=== PATIENT | female | born 1990 | race Caucasian/White ===

== ENCOUNTER 2016-06-16 12:56 | Emergency (ER) | payer SELFPAY ==
--- NOTE | 2016-06-16 14:26 | ER Document Report ---
HPI - HPI Patient complains to provider of: left shoulder pain for 2 years Onset: Other - 2 years Onset/Duration: Gradual Quality of pain: Burning, Throbbing Pain Level: 5 Context: 25-year-old female complaining of chronic intermittent posterior left shoulder pain that radiates up into her neck and periscapular. 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 She started working at [employer] here which has aggravated it. It hurt so bad last night that it caused her left arm to go numb. No cervical spine injury. Pain or shortness of breath. She feels like she constantly has to hold her posterior shoulder muscle while she is working. Associated Symptoms: None Exacerbated by: Movement Relieved by: Denies Similar symptoms previously: Yes Recently seen / treated by doctor: No - ROS ROS below otherwise negative: Yes Systems Reviewed and Negative: Yes All other systems reviewed and negative - DERM Skin Color: Normal Past Medical History - General Information source: Patient - Social History Smoking Status: Current Every Day Smoker Frequency of alcohol use: None Drug Abuse: None Lives with: Spouse/Significant other Family History: Reviewed & Not Pertinent Patient has suicidal ideation: No Patient has homicidal ideation: No - Medical History Medical History: Negative Renal/ Medical History: Denies: Hx Peritoneal Dialysis Surgical Hx: Negative Vertical Provider Document - CONSTITUTIONAL Agree With Documented VS: Yes Exam Limitations: No Limitations - INFECTION CONTROL TRAVEL OUTSIDE OF THE [place] IN LAST 30 DAYS: No - HEENT HEENT: Atraumatic, Normocephalic Notes: Nontender C-spine - NECK Neck: Supple - RESPIRATORY Respiratory: Breath Sounds Normal, No Respiratory Distress O2 Sat by Pulse Oximetry: 98 - CARDIOVASCULAR Cardiovascular: Regular Rate, Regular Rhythm - BACK Back: Normal Inspection - Tender left trapezius, left periscapular muscles - MUSCULOSKELETAL/EXTREMETIES Musculoskeletal/Extremeties: MAEW, FROM, Tender - See above - NEURO Level of Consciousness: Awake, Alert Motor/Sensory: No Motor Deficit, No Sensory Deficit - DERM Integumentary: Warm, Dry, No Rash Course - Vital Signs Vital signs: Temp Pulse Resp BP Pulse Ox 98.6 F 112 H 18 134/94 H 98 06/16/16 13:01 06/16/16 13:01 06/16/16 13:01 06/16/16 13:01 06/16/16 13:01 Discharge - Discharge Clinical Impression: Strain of left trapezius muscle Qualifiers: Encounter type: initial encounter Qualified Code(s): S46.812A - Strain of other muscles, fascia and tendons at shoulder and upper arm level, left arm, initial encounter Condition: Good Disposition: HOME, SELF-CARE Instructions: Anti-Inflammatory Medication ([facility]), Acetaminophen, Muscle Relaxers ([facility]), Muscle Strain ([facility]), Chiropractor Additional Instructions: warm compress See orthopedic doctor for referral See chiropractor See physical therapy Satisfaction Prescriptions: Ibuprofen [Motrin 800 mg Tablet] 800 mg PO Q8HP PRN #30 tablet PRN Reason: Cyclobenzaprine HCl [Flexeril 10 Mg Tablet] 10 mg PO TIDP PRN #20 tablet PRN Reason: Forms: Return to Work Referrals: ROBERT OLEA MD [ACTIVE STAFF] - Follow up as needed
[2016-06-16] MEDS ORDERED: IBUPROFEN 800 MG TABLET PO ONE (14:34)
[2016-06-16] MEDS ORDERED: ACETAMINOPHEN 325 MG TABLET PO ONE (14:34)
[2016-06-16 15:01] VITALS: BP 131/71
== END 2016-06-16 15:01 | disposition home or self-care (01) ==
LOC: ER 12:56
DX: S46.812A Strain of other muscles, fascia and tendons at shoulder and upper arm level, left arm, initial encounter (principal); M25.512 Pain in left shoulder; G89.29 Other chronic pain; M54.2 Cervicalgia; F17.200 Nicotine dependence, unspecified, uncomplicated; X58.XXXA Exposure to other specified factors, initial encounter
CPT/HCPCS: 99283